=== PATIENT | male | born 1985 | race Caucasian/White ===

== ENCOUNTER 2017-04-16 08:26 | Emergency (ER) | payer OTHER ==
[~2017-04-16] VITALS: Ht 182.9 cm; Wt 84.6 kg
[~2017-04-16 08:26] MED LIST: DIVA500T3 PO; FLUO20CA35 PO; FLUT0.15 NAE; HYDR1CAP85 PO; NCDT21 TD; PRAZ1CAP PO; PRLSR20 PO; QUET1TAB32 PO; VALA1TAB PO; ZNTT/150 PO
[2017-04-16 08:36] VITALS: BP 143/85; PULSE 78; TEMP 37; O2SAT 96; Ht 182.9 cm; Wt 84.6 kg
[2017-04-16] MEDS ORDERED: TRAZ50TA35 PO (08:49)
[2017-04-16] MEDS ORDERED: VENL75CA PO (08:49)
[2017-04-16] MEDS ORDERED: SODIUM CHLORIDE 0.9% 1000ML 1,000 ML IV STA (09:08)
[2017-04-16] MEDS ORDERED: PROCHLORPERAZINE 5 MG/ML 2 ML VIAL IV STA (09:08)
[2017-04-16] MEDS ORDERED: KETOROLAC TROMETHAMINE 30 MG/ML VIAL IV STA (09:08)
[2017-04-16 09:45] LABS: BASO % 0.2 %; BASO ABS # 0.02 K/uL (0-0.2); COMPLETE YES; HEMATOCRIT 47.3 % (42-52); IG% 0.3 %; LYMPH % 11.7 %; LYMPH ABS # 1.31 K/uL (1.2-3.4); MEAN CELL VOLUME 90.6 fL (80-100); MEAN CORPUSCULAR HEMOGLOBIN 30.5 pg (25-34); MEAN CORPUSCULAR HGB CONC 33.6 g/dl (32-36); MEAN PLATELET VOLUME 10.3 fL (7.4-10.4); MONO % 11.3 %; NEUT % 76.5 %; PLATELET COUNT 321 K/uL (130-400); RED BLOOD COUNT 5.22 M/uL (4.7-6.1); WHITE BLOOD COUNT 11.23 K/uL (4.8-10.8)
--- NOTE | 2017-04-16 09:52 | DIAGNOSTIC IMAGING REPORT ---
CHEST ONE VIEW PORTABLE CLINICAL HISTORY: Abdominal pain. Flu-like symptoms. COMPARISON STUDY: Chest radiograph December 24, 2015. FINDINGS: Lung volumes are normal. No consolidation is present. No pneumothorax or pleural effusion is noted. Pulmonary vascularity is normal. Cardiomediastinal silhouette is normal. No lucency is identified under the hemidiaphragms to suggest pneumoperitoneum on this exam. IMPRESSION: No acute cardiopulmonary findings. Electronically signed by: Jatin Varma M.D. 04/16/2017 9:51 AM Dictated Date/Time: 04/16/2017 9:50 AM
[2017-04-16 10:12] LABS: ALT/SGPT 28 U/L (12-78); AST/SGOT 13 U/L (15-37); BLOOD UREA NITROGEN 12 mg/dl (7-18); BUN/CREATININE RATIO 9.5 (10-20); CALCIUM 10.4 mg/dl (8.5-10.1); CARBON DIOXIDE 26 mmol/L (21-32); CHLORIDE 103 mmol/L (98-107); GLUCOSE 136 mg/dl (70-99); POTASSIUM 3.4 mmol/L (3.5-5.1); SODIUM 139 mmol/L (136-145)
[2017-04-16 10:14] LABS: ALKALINE PHOSPHATASE 87 U/L (45-117)
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
== END 2017-04-16 10:08 | disposition left against medical advice (07) ==
LOC: C.EDB 08:27
DX: R11.2 Nausea with vomiting, unspecified (principal); R10.9 Unspecified abdominal pain; F41.9 Anxiety disorder, unspecified; F31.9 Bipolar disorder, unspecified; F17.200 Nicotine dependence, unspecified, uncomplicated; Z89.612 Acquired absence of left leg above knee; Z98.890 Other specified postprocedural states; Z88.0 Allergy status to penicillin